=== PATIENT | female | born 1995 | race African-American/Black ===

== ENCOUNTER 2019-02-12 21:12 | Emergency (ER) | payer MEDICARE, MEDICAID ==
[~2019-02-12] VITALS: Ht 167.6 cm; Wt 57.3 kg
--- NOTE | 2019-02-12 21:31 | NUR ---
EKG DONE AND PRESENTED TO DR. GAYTAN.
--- NOTE | 2019-02-12 21:52 | NUR ---
L&D RN IN TO [facility]AL [facility]Y; HR 140'S.
[2019-02-12 22:04] LABS: MEAN CORPUSCULAR HEMOGLOBIN 28.8 pg (27.0-34.8); MEAN CORPUSCULAR HGB CONC 31.8 g/dL (32.4-35.8); MEAN CORPUSCULAR VOLUME 90.4 fL (80-100); PLATELET COUNT 260 x10^3/uL (130-400); RED BLOOD COUNT 4.18 x10^6/uL (3.82-5.3); RED CELL DISTRIBUTION WIDTH 13.9 % (9.6-15.2)
[2019-02-12 22:16] LABS: ALBUMIN 3.5 g/dL (3.4-5.0); ANION GAP 4 mmol/L (5-15); CALCIUM 9.3 mg/dL (8.5-10.1); CHLORIDE 106 mmol/L (98-107); CREATININE 0.59 mg/dL (0.55-1.02)
--- NOTE | 2019-02-12 22:16 | NUR ---
PT. PROVIDED WITH CLEAN CATCH UA INSTRUCTIONS AND AMBULATORY TO BR WITH STEADY GAIT.
[2019-02-12 22:23] LABS: MD YES
[2019-02-12 22:25] LABS: BANDS%(MANUAL) 1 % (0-7); LYMPH#(MANUAL) 0.98 x10^3/uL (1-3.4); LYMPHS% (MANUAL) 5 % (22-44); MONOS#(MANUAL) 1.95 x10^3/uL (0.3-2.7); MONOS% (MANUAL) 10 % (2-9); SEG#(MANUAL) 16.38 x10^3/uL (1.8-6.8); SEGS% (MANUAL) 84 % (42-75)
[2019-02-12 22:26] LABS: <PLATELET ESTIMATE> ADEQUATE; <PLT MORPHOLOGY> NORMAL PLT MORPH; <RBC MORPHOLOGY> NORMAL
[2019-02-12 22:35] VITALS: BP 105/66
[2019-02-12 22:49] LABS: CULTURE INDICATED? YES; MICROSCOPIC INDICATED
--- NOTE | 2019-02-12 23:10 | NUR ---
PT. REPORTS SHE BELIEVES SHE LEFT HER CELL PHONE ON THE AMBULANCE; HEATH CALLED AND WILL REPORT BACK WILLIAM.
--- NOTE | 2019-02-12 23:20 | NUR ---
HEATH RETURN PHONE CALL; NO CELL PHONE WAS FOUND ON THE AMBULANCE. PT. UPDATED ON THIS. PT. RESTING ON [place] WITH NO DISTRESS NOTED. AWAITING DISPO.
[2019-02-12] MEDS ORDERED: CEFDINIR 300 MG CAPSULE ONE (23:26)
[2019-02-12] MEDS ORDERED: CEFDINIR 300 MG CAPSULE PO ONE (23:30)
--- NOTE | 2019-02-13 00:09 | NUR ---
PT. REQUESTING MEDS FOR VAGINAL "BURNING". DR. GAYTAN BACK IN TO SPEAK WITH PT. AT THIS TIME.
== END 2019-02-13 00:44 | disposition home or self-care (01) ==
LOC: ED 02-13 00:03
DX: O23.12 Infections of bladder in pregnancy, second trimester (principal); R07.89 Other chest pain; Z3A.29 29 weeks gestation of pregnancy
CPT/HCPCS: 36415; 71045; 80048; 81001; 82040; 85025; 87086; 93005; 99284

== ENCOUNTER 2020-01-06 20:18 | Emergency (ER) | payer MEDICARE, MEDICAID ==
[~2020-01-06] VITALS: Ht 157.5 cm; Wt 45.1 kg
[~2020-01-06 20:18] MED LIST: IBUP-1222 PO
[2020-01-06 20:22] VITALS: BP 113/86
--- NOTE | 2020-01-06 21:11 | NUR ---
TO DISCHARGE PT AT THIS TIME, PT CONTINUE TALKING ON CELL PHONE.
== END 2020-01-06 21:14 | disposition home or self-care (01) ==
LOC: ED 20:38
DX: K08.89 Other specified disorders of teeth and supporting structures (principal)
CPT/HCPCS: 99283

== ENCOUNTER 2020-02-16 11:47 | Emergency (ER) | payer MEDICARE, MEDICAID ==
[~2020-02-16] VITALS: Ht 157.5 cm; Wt 46.3 kg
[2020-02-16 12:00] VITALS: BP 94/62
--- NOTE | 2020-02-16 12:04 | NUR ---
DC FROM TRIAGE
== END 2020-02-16 12:11 | disposition home or self-care (01) ==
LOC: ED 11:50
DX: K08.89 Other specified disorders of teeth and supporting structures (principal)
CPT/HCPCS: 99283